=== PATIENT | male | born 1970 | race Caucasian/White ===

== ENCOUNTER 2021-05-07 19:58 | Emergency (ER) | payer OTHER, SELFPAY ==
[2021-05-07 20:03] VITALS: BP 175/106; PULSE 87; RESP 18; TEMP 36.5; O2SAT 97
[2021-05-07 22:36] LABS: Basophils Percent Auto 0.4 % (0.2-1.2); Eosinophils Absolute Auto 0.2 K/mm3 (0-0.3); Eosinophils Percent Auto 2.4 % (0-4.4); Hematocrit 42.1 % (42.0-52.0); Hemoglobin 14.4 g/dL (14.0-18.0); Immature Granulocyte Absolute 0.04 K/mm3 (0.00-0.031); Immature Granulocyte Percent A 0.6 % (0-0.5); Lymphocytes Absolute Auto 2.67 K/mm3 (0.9-3.2); Lymphocytes Percent Auto 39.8 % (18.3-44.2); Mean Corpuscular HGB Conc 34.2 g/dl (32-36); Mean Corpuscular Hemoglobin 32.7 pg (26-34); Mean Corpuscular Volume 95.7 fl (80-100); Mean Platelet Volume 9.4 fl (7.4-10.4); Monocytes Absolute Auto 0.6 K/mm3 (0.1-0.6); Monocytes Percent Auto 8.9 % (2.6-8.5); Neutrophils Absolute Auto 3.2 K/mm3 (1.3-6.7); Neutrophils Percent Auto 47.9 % (45.5-73.1); Platelet Count Result 239 k/mm3 (150-375); Red Cell Distribution Width 13.7 % (11.5-14.5); White Blood Count 6.7 K/mm3 (4.5-10.0)
[2021-05-07 22:47] LABS: Alanine Aminotransferase 38 U/L (4-50); Albumin Level 4.7 g/dL (3.5-5.1); Alkaline Phosphatase 55 U/L (38-126); Anion Gap 7 mmol/L (8-16); Aspartate Amino Transferase 45 U/L (17-59); Bilirubin,Total 0.4 mg/dL (0.2-1.3); Blood Urea Nitrogen 12 mg/dL (9-20); Calcium 9.8 mg/dL (8.4-10.2); Carbon Dioxide 28 mmol/L (22-30); Chloride 101 mmol/L (98-107); Estimated CRCL calculation 128 ml/min; Estimated Glomerular Filt Rate > 60; Glucose 98 mg/dL (65-110); Sodium 136 mmol/L (137-145)
[2021-05-07 22:52] VITALS: BP 160/89
[2021-05-07 22:58] LABS: Troponin I < 0.012 ng/mL (0.000-0.034)
--- NOTE | 2021-05-07 23:04 | ED.GENADULT ---
HPI - General Adult General Chief complaint: Headache Stated complaint: high blood pressure Time Seen by Provider: 05/07/21 21:59 History of Present Illness HPI narrative: Patient is a 50-year-old gentleman who presents the emergency department with chief complaint of high blood pressure. Patient reports that he checked his blood pressure today after he had several episodes of feeling lightheaded that last for just a few seconds. The patient states that he noticed his diastolic blood pressure was above 100 patient states he had no chest pain or shortness of breath with this. The patient states that now since he arrived in the emergency department he actually feels better and his symptoms have completely resolved. Patient states her last period Related Data Home Medications Medication Instructions Recorded Confirmed dexlansoprazole [Dexilant] mg 06/24/19 Allergies Allergy/AdvReac Type Severity Reaction Status Date / Time No Known Allergies Allergy Verified 05/07/21 22:00 Review of Systems Review of Systems: A 10 system review of systems was completed on the patient and is negative except for what is stated in the HPI. Nursing and ancillary documentation was reviewed. FOR[facility]LY [facility] Social History Social History Gender identity (if verbalized by the patient): Male Exam Narrative: GENERAL: Well-appearing, well-nourished, and in no acute distress. HEAD: Normocephalic, atraumatic. EYES: PERRLA and EOMI. ENT: Nares clear, no rhinorrhea or epistaxis. Mucous membranes moist. NECK: Supple. CHEST: Clear to auscultation. No respiratory distress. HEART: Regular rate and rhythm. No murmur heard. Normal peripheral pulses. ABDOMEN: Soft, nontender, nondistended, normal active bowel sounds. EXTREMITIES: Normal range of motion. No edema. SKIN: Warm, dry, no rash. NEURO: No focal deficits. Alert and oriented x3. PSYCH: Normal mood and affect. Course Vital Signs Vital signs: Vital Signs Temperature 36.5 C 05/07/21 20:03 Pulse Rate 87 05/07/21 20:03 Respiratory Rate 18 05/07/21 20:03 Blood Pressure 175/106 H 05/07/21 20:03 Pulse Oximetry 97 05/07/21 20:03 Temperature 36.5 C 05/07/21 20:03 Pulse Rate 87 05/07/21 20:03 Respiratory Rate 18 05/07/21 20:03 Blood Pressure 160/89 H 05/07/21 22:52 Pulse Oximetry 97 05/07/21 20:03 Medical Decision Making Vital Signs Vital Signs: Vital Signs Temperature 36.5 C 05/07/21 20:03 Pulse Rate 87 05/07/21 20:03 Respiratory Rate 18 05/07/21 20:03 Blood Pressure 175/106 H 05/07/21 20:03 Pulse Oximetry 97 05/07/21 20:03 Temperature 36.5 C 05/07/21 20:03 Pulse Rate 87 05/07/21 20:03 Respiratory Rate 18 05/07/21 20:03 Blood Pressure 160/89 H 05/07/21 22:52 Pulse Oximetry 97 05/07/21 20:03 Lab Data Result diagrams: 05/07/21 22:23 05/07/21 22:23 Labs: Lab Results 05/07/21 05/07/21 Range/Units 22:23 22:23 WBC 6.7 (4.5-10.0) K/mm3 RBC 4.40 L (4.6-6.20) M/mm3 Hgb 14.4 (14.0-18.0) g/dL Hct 42.1 (42.0-52.0) % MCV 95.7 (80-100) fl MCH 32.7 (26-34) pg MCHC 34.2 (32-36) g/dl RDW 13.7 (11.5-14.5) % Plt Count 239 (150-375) k/mm3 MPV 9.4 (7.4-10.4) fl Immature Gran % (Auto) 0.6 H (0-0.5) % Neut % (Auto) 47.9 (45.5-73.1) % Lymph % (Auto) 39.8 (18.3-44.2) % Foster % (Auto) 8.9 H (2.6-8.5) % Eos % (Auto) 2.4 (0-4.4) % Baso % (Auto) 0.4 (0.2-1.2) % Lymph # (Auto) 2.67 (0.9-3.2) K/mm3 Foster # (Auto) 0.6 (0.1-0.6) K/mm3 Eos # (Auto) 0.2 (0-0.3) K/mm3 Baso # (Auto) 0.0 (0.0-0.1) K/mm3 Abs Immat Gran (auto) 0.04 H (0.00-0.031) K/mm3 Absolute Neuts (auto) 3.2 (1.3-6.7) K/mm3 Absolute Nucleated RBC 0.0 (0.0-0.012) K/mm3 Nucleated RBC % 0.0 (0.0-0.2) % Sodium 136 L (137-145) mmol/L Potassium 4.0 (3.4-5.0) mmol/L Chloride 101 (
== END 2021-05-07 23:19 | disposition home or self-care (01) ==
PROVIDERS: Emergency Provider Emergency Medicine; PCP Internal Medicine
DX: I10 Essential (primary) hypertension (principal)
CPT/HCPCS: 36415; 80053; 84484; 85025; 99284

== ENCOUNTER 2023-06-12 10:57 | Emergency (ER) | payer OTHER, SELFPAY ==
[2023-06-12 11:06] VITALS: BP 147/79; PULSE 113; RESP 16; TEMP 38.2; O2SAT 96
--- NOTE | 2023-06-12 12:12 | ED.URI ---
HPI - URI/Sore Throat General Chief Complaint: Upper Respiratory Infection Stated Complaint: nauseated,bodyaches,headache Time Seen by Provider: 06/12/23 11:10 Source: patient Mode of arrival: ambulatory Limitations: no limitations History of Present Illness HPI Narrative: Brian is a 53-year-old male patient presenting to the clinic today with complaints of nausea, body aches, and headache that started last evening. He reports he has had a slight fever. No known exposure to anyone with COVID, flu, or strep. Denies any chest pain or shortness of breath. MD elicited complaint: sore throat and nasal congestion Related Data Allergies Allergy/AdvReac Type Severity Reaction Status Date / Time No Known Allergies Allergy Verified 06/12/23 11:09 Review of Systems Review of Systems: Pertinent positives per HPI. Patient denies any fever, chills, rash, headache, visual changes, dizziness, cough, shortness of breath, chest pain, palpitations, nausea, vomiting, diarrhea, constipation, abdominal pain, or any urinary issues. PMFSH Social History Social History Gender identity (if verbalized by the patient): Male Comments At the time of my signature, I reviewed and agree with the nursing past medical, surgical, social, and family history. There is no relevant family history pertinent to the patient complaint. Exam Narrative: General: Well-developed, well nourished, in no apparent distress Head: Normocephalic, atraumatic Eyes: Pupils equally round and reactive to light bilaterally, EOM intact, sclera and conjunctive clear, no discharge, lids normal Ears: TMs intact and clear, ear canals clear, no drainage, grossly hearing normal. Nose: Nares patent, clear nasal discharge, no inflammation, no sinus tenderness. Mouth: Oral pharynx without lesions or masses, good dentition, MMM. Neck: Supple, trachea midline, no enlargement of anterior or posterior cervical nodes, no thyroid masses or goiter palpable. Cardio: Regular rate and rhythm, s1 and s2 normal, no murmur appreciated. Resp: Clear to auscultation bilaterally, no rhonchi, rales, wheezing or rubs Course Course Emergency Course: Portions of this record may have been created with voice recognition software. Level of Care: Express Care Visit Vital Signs Vital signs: Vital Signs Temperature 38.2 C H 06/12/23 11:06 Pulse Rate 113 H 06/12/23 11:06 Respiratory Rate 16 06/12/23 11:06 Blood Pressure 147/79 H 06/12/23 11:06 Pulse Oximetry 96 06/12/23 11:06 Oxygen Delivery Room Air 06/12/23 11:06 Temperature 38.2 C H 06/12/23 11:06 Pulse Rate 113 H 06/12/23 11:06 Respiratory Rate 16 06/12/23 11:06 Blood Pressure 147/79 H 06/12/23 11:06 Pulse Oximetry 96 06/12/23 11:06 Oxygen Delivery Room Air 06/12/23 11:06 Vital signs reviewed MDM - URI/Sore Throat MDM Narrative Medical decision making narrative: At the time of visit patient is resting comfortably on the exam table. Patient appears to be nontoxic. COVID, influenza, and strep test were all performed and negative in the clinic today. Recommend patient retest for COVID here and 1-2 days if symptoms persist. I suspect patient has URI with viral syndrome. Supportive measures were discussed with the patient and they voiced understanding discharge instructions and agrees to treatment plan. Return precautions reviewed Differential Diagnosis Differential diagnosis: Likely upper respiratory infection, otitis media, sinusitis, viral infection, bronchitis, influenza, pharyngitis and other (COVID) Lab Data Labs: Lab Results 06/12/23 Range/Units 11:27 POC SARS CoV-2 Ag Negative (Negative) Influenza A Screen Negative Reference Range: Negative Influenza A Screen Negative Reference Range: Negative*
== END 2023-06-12 12:18 | disposition home or self-care (01) ==
PROVIDERS: Emergency Provider Nurse Practitioner Family; PCP Internal Medicine
DX: B34.9 Viral infection, unspecified (principal); J06.9 Acute upper respiratory infection, unspecified; Z20.822 Contact with and (suspected) exposure to COVID-19; K21.9 Gastro-esophageal reflux disease without esophagitis
CPT/HCPCS: 87081; 87426; 87804; 87880; 99213; C9803; G0463